=== PATIENT | male | born 1960 | race Caucasian/White ===

== ENCOUNTER 2017-11-23 00:05 | Emergency (ER) | payer BC ==
[2017-11-23 00:18] VITALS: TEMP 98.4
[2017-11-23 00:49] LABS: Amphetamine Screen,Urine Not Detected (NotDetected); Barbiturate Screen,Urine Not Detected (NotDetected); Benzodiazepines Screen,Urine Not Detected (NotDetected); Cocaine Screen,Urine Not Detected (NotDetected); Methadone Screen, Urine Not Detected (NotDetected); Opiate Screen,Urine Not Detected (NotDetected); Oxycodone Screen, Urine Not Detected (NotDetected); Phencyclidine Screen,Urine Not Detected (NotDetected); Tricyclic Antidepressant,Urine Not Detected (NotDetected); Urn Cannabinoid Scrn Not Detected (NotDetected)
--- NOTE | 2017-11-23 01:06 | ED ---
Psych HPI - General Chief Complaint: Psychiatric Symptoms Stated Complaint: mental health Time Seen by Provider: 11/23/17 00:23 Source: patient Mode of arrival: ambulatory - History of Present Illness Initial Comments: 26 years old gentleman now was petitioned by his son and they believe he is delusional and is paranoid police brought him in and initially he was not very cooperative with the police but in ER he is very cooperative is pleasant he is answering questions. He believes the government is out there are controlling things least see the [place] with the family where they went in a quite a bit of detail about the patient's delusions and paranoia. He believes that [phone] [id number] were made by the [employer] as well as Her GET food from the [employer] to the popliteal light and no medical complaints at all - Related Data Home Medications Medication Instructions Recorded Confirmed No Known Home Medications [No 11/23/17 11/23/17 Known Home Medications] Allergies Allergy/AdvReac Type Severity Reaction Status Date / Time Penicillins Allergy Unknown Verified 11/23/17 00:18 Childhood Review of Systems ROS Statement: Those systems with pertinent positive or pertinent negative responses have been documented in the HPI. ROS Other: All systems not noted in ROS Statement are negative. Past Medical History Past Medical History: No Reported History History of Any Multi-Drug Resistant Organisms: None Reported Past Surgical History: No Surgical Hx Reported Past Psychological History: No Psychological Hx Reported Smoking Status: Current every day smoker Past Alcohol Use History: Occasional Past Drug Use History: None Reported General Exam - General Exam Comments Initial Comments: General: The patient is awake and alert, in no distress, and does not appear acutely ill. Skin: Skin is warm and dry and no rashes or lesions are noted. Eye: Pupils are equal, round and reactive to light, extra-ocular movements are intact; there is normal conjunctiva bilaterally. Ears, nose, mouth and throat: There are moist mucous membranes and no oral lesions. Neck: The neck is supple, there is no tenderness or JVD. Cardiovascular: There is a regular rate and rhythm. No murmur, rub or gallop is appreciated. Respiratory: To auscultation bilateral, no wheezing no rhonchi no distress respiratory self noticed Gastrointestinal: Soft, non-distended, non-tender abdomen without masses or organomegaly noted. There is no rebound or guarding present. Bowel sounds are unremarkable. Back: There is no tenderness to palpation in the midline. There is no obvious deformity. Musculoskeletal: Normal ROM, no tenderness, There is no pedal edema. There is no calf tenderness or swelling. No cords were appreciated. Neurological: CN II-XII intact, Cranial nerves III through XII are intact. There are no obvious motor or sensory deficits. Coordination appears grossly intact. Speech is normal. Psychiatric: Cooperative, appropriate mood & affect, based on the information the petition he definitely has a dilution as well as paranoia, denies any suicidal or homicidal ideation Limitations: no limitations Course Vital Signs 11/23/17 00:12 Temperature 98.4 F Pulse Rate 118 H Respiratory 20 Rate Blood Pressure 159/113 O2 Sat by Pulse 97 Oximetry We have consulted EPS to evaluate him and hopefully will be admitted for further evaluation and management Medical Decision Making - Lab Data Lab Results 11/23/17 Range/Units 00:23 Urine Opiates Screen Not Detected (NotDetected) Ur Oxycodone Screen Not Detected (NotDetected) Urine Methadone Screen Not Detected (NotDetected) Ur Propoxyphene Screen Not Detected (NotDetected) Ur Barbiturates Screen Not Detected (NotDetected) U Tricyclic Antidepress Not Detected (NotDetected) Ur Phencyclidine Scrn Not Detected (NotDetected) Ur Amphetamines Screen Not Detected (NotDetected) U Methamphetamines Scrn Not Detected (NotDetected) U Benzodiazepines Scrn Not Detected (NotDetected) Urine Cocaine Screen Not Detected (NotDetected) U Marijuana (THC) Screen Not Detected (NotDetected) Disposition Clinical Impression: Psychosis Disposition: ADMITTED IP TO THIS HOSP Condition: Good Referrals: None,Stated [Primary Care Provider] - 1-2 days
[2017-11-23] MEDS ORDERED: LORazepam 1 MG TAB PO STA (03:57)
[2017-11-23 05:08] LABS: Basophils % (A) 0 %; Eosinophils # (A) 0.1 k/uL (0-0.7); Eosinophils % (A) 1 %; HCT 45.1 % (39.0-53.0); HGB 16.1 gm/dL (13.0-17.5); Lymphocytes # (A) 1.8 k/uL (1.0-4.8); Lymphocytes % (A) 17 %; MCH 31.3 pg (25.0-35.0); MCHC 35.6 g/dL (31.0-37.0); Mean Platelet Volume 6.4; Monocytes # (A) 0.7 k/uL (0-1.0); Monocytes % (A) 7 %; Neutrophils # (A) 7.6 k/uL (1.3-7.7); Neutrophils % (A) 75 %; Platelet Count 229 k/uL (150-450); RBC 5.12 m/uL (4.30-5.90); RDW 12.6 % (11.5-15.5); WBC 10.2 k/uL (3.8-10.6)
[2017-11-23 05:16] LABS: Appearance,Urine Clear (Clear); Bilirubin,Urine Negative (Negative); Blood,Urine Negative (Negative); Color,Urine Yellow; Glucose,Urine (UA) Negative (Negative); Hyaline Casts,Urine 171 /lpf (0-2); Ketones,Urine 2+ (Negative); Leukocyte Esterase,Urine Negative (Negative); Mucus,Urine Occasional /hpf; Nitrite,Urine Negative (Negative); PH, Urine 5.5 (5.0-8.0); Protein,Urine 1+ (Negative); RBC,Urine <1 /hpf (0-5); Specific Gravity,Urine 1.013 (1.001-1.035); Squamous Epithelial Cell,Urine <1 /hpf (0-4); Urobilinogen,Urine <2.0 mg/dL (<2.0); WBC,Urine 2 /hpf (0-5)
[2017-11-23 05:17] LABS: ALT 44 U/L (21-72); AST 34 U/L (17-59); Albumin 4.3 g/dL (3.5-5.0); Alkaline Phosphatase 43 U/L (38-126); Anion Gap 15 mmol/L; Blood Urea Nitrogen 18 mg/dL (9-20); Calcium 9.3 mg/dL (8.4-10.2); Carbon Dioxide 23 mmol/L (22-30); Chloride 105 mmol/L (98-107); Glucose 102 mg/dL (74-99); Potassium 3.4 mmol/L (3.5-5.1); Sodium 143 mmol/L (137-145); Total Bilirubin 0.6 mg/dL (0.2-1.3); Total Protein 6.5 g/dL (6.3-8.2)
--- NOTE | 2017-11-23 05:48 | CT ---
EXAM: CT Head Without Intravenous Contrast CLINICAL HISTORY: ITS.REASON CT Reason: Pain TECHNIQUE: Axial computed tomography images of the head/brain without intravenous contrast. CTDI is 15.98 mGy and DLP is 1126.5 mGy-cm. This CT exam was performed using one or more of the following dose reduction techniques: automated exposure control, adjustment of the mA and/or kV according to patient size, and/or use of iterative reconstruction technique. COMPARISON: None. FINDINGS: Brain: Unremarkable. No acute intracranial hemorrhage. No midline shift or herniation. Ventricles: Unremarkable. No ventriculomegaly. Bones/joints: No acute fracture. Soft tissues: Unremarkable. Sinuses: Unremarkable as visualized. Mastoid air cells: Unremarkable as visualized. IMPRESSION: No acute intracranial findings by noncontrast CT head.
[2017-11-23 06:28] VITALS: BP 134/72; PULSE 97; RESP 16
== END 2017-11-23 16:15 | disposition other institution (70) ==
LOC: EC 00:05
DX: F29 Unspecified psychosis not due to a substance or known physiological condition (principal); F17.200 Nicotine dependence, unspecified, uncomplicated; Z88.0 Allergy status to penicillin
CPT/HCPCS: 36415; 70450; 80053; 80306; 81001; 82075; 85025; 99285

== ENCOUNTER 2017-12-08 16:05 | Emergency (ER) | payer BC ==
[2017-12-08 16:09] VITALS: TEMP 97.8
[2017-12-08] MEDS ORDERED: DIPH,PERTUS(ACELL)TETVAC-LF 0.5 ML VIAL IM ONE (17:19)
--- NOTE | 2017-12-08 17:43 | ED ---
Wound/Laceration HPI - General Chief Complaint: Wound/Laceration Stated Complaint: lac left index Time Seen by Provider: 12/08/17 17:07 Source: patient, RN notes reviewed, old records reviewed Mode of arrival: ambulatory Limitations: no limitations - History of Present Illness Initial Comments: 56-year-old male with CC of left index finger tip laceration while working with a saw. Patient reports that he cut the tip of the fingertip, no nailbed involvement. Patient reports that he avulsed the skin. Patient denies peripheral paresthesias. He does not know if his TDAP is up to date. Denies pain with ROM of the finger. Aleksandern is right handed. - Related Data Previous Rx's Medication Instructions Recorded Sulfamethox-Tmp 800-160Mg [Bactrim 1 tab PO BID #14 tab 12/08/17 DS 800-160 mg] Allergies Allergy/AdvReac Type Severity Reaction Status Date / Time Penicillins Allergy Itching Verified 12/08/17 17:34 Review of Systems ROS Statement: Those systems with pertinent positive or pertinent negative responses have been documented in the HPI. ROS Other: All systems not noted in ROS Statement are negative. Past Medical History Past Medical History: No Reported History History of Any Multi-Drug Resistant Organisms: None Reported Past Surgical History: Tonsillectomy Past Psychological History: No Psychological Hx Reported Smoking Status: Former smoker Past Alcohol Use History: Daily Past Drug Use History: None Reported General Exam - General Exam Comments Initial Comments: Well appearing alert and oriented 56 year old male, no acute distress. Limitations: no limitations General appearance: alert, in no apparent distress Head exam: Present: atraumatic, normocephalic, normal inspection Eye exam: Present: normal appearance, PERRL, EOMI. Absent: scleral icterus, conjunctival injection, periorbital swelling ENT exam: Present: normal exam, mucous membranes moist Neck exam: Present: normal inspection. Absent: tenderness, meningismus, lymphadenopathy Respiratory exam: Present: normal lung sounds bilaterally. Absent: respiratory distress, wheezes, rales, rhonchi, stridor Cardiovascular Exam: Present: regular rate, normal rhythm, normal heart sounds. Absent: systolic murmur, diastolic murmur, rubs, gallop, clicks GI/Abdominal exam: Present: soft, normal bowel sounds. Absent: distended, tenderness, guarding, rebound, rigid Extremities exam: Present: normal inspection, full ROM, normal capillary refill , other (2 cm laceration over distal left fourth digit. Skin is avulsed. Full ROM and patient is NV intact. ). Absent: tenderness, pedal edema, joint swelling, calf tenderness Psychiatric exam: Present: normal affect, normal mood Skin exam: Present: warm, dry, intact, normal color. Absent: rash Course Vital Signs 12/08/17 12/08/17 16:07 18:32 Temperature 97.8 F Pulse Rate 104 H 90 Respiratory 20 16 Rate Blood Pressure 124/79 121/80 O2 Sat by Pulse 98 97 Oximetry Procedures - Laceration Laceration #1 Site: hand (left distal index finger. ) Size (cm): 2 Description: linear Depth: simple, single layer Pre-repair: wound explored, irrigated extensively Type of Sutures: other (gelfoam) Patient Tolerated Procedure: well, no complications Medical Decision Making - Medical Decision Making Patient is a 56 year old male with left index finger laceration. Skin is avulsed , and cannto be sutured with well approximation. Patient wound was cleaned, and gelfoam and tube gauze placed over area. Xray shows no foreign body or dislocation. Patient given updated Keflex. Referral to hand specialist. All questiona nswered and return parameters discussed. - Radiology Data Radiology results: report reviewed Soft tissue deformity at anterior aspect of left index finger, No fracture or foreign body. Mild spurring at DIP joint. Disposition Clinical Impression: Finger laceration Disposition: HOME SELF-CARE Condition: Good Instructions: Finger Laceration (ED) Additional Instructions: Patient is advised to keep the wound covered for the next 2 days. Afterwards he can remove the gauze dressing and use water to slowly remove the Gelfoam. Afterwards extremely keeping the wound covered. Take the antibiotics to ensure no infection. Return to the emergency department if any alarming signs or symptoms occur. Prescriptions: Sulfamethox-Tmp 800-160Mg [Bactrim DS 800-160 mg] 1 tab PO BID #14 tab Is patient prescribed a controlled substance at d/c from ED?: No When asked, does pt state using other controlled substances?: No If prescribed controlled substance>3 days was MAPS reviewed?: No If opioid is for acute pain is fill amount 7 days or less?: No If Rx opioid, was Start Talking consent form obtained?: No Referrals: Val Hester DO [Primary Care Provider] - 1-2 days Time of Disposition: 18:16
--- NOTE | 2017-12-08 18:02 | XR ---
EXAMINATION TYPE: XR finger LT DATE OF EXAM: 12/08/2017 COMPARISON: NONE HISTORY: Laceration injury TECHNIQUE: 3 views FINDINGS: There is soft tissue deformity at the anterior aspect of the left index finger. I see no fr acture nor dislocation. There is no sign of a foreign body. IMPRESSION: Laceration deformity. No fracture seen. Mild spurring at the DIP joint.
[2017-12-08] MEDS ORDERED: GELATIN SPONGE,ABSORB (SMALL) 1 EACH SPONGE TOPICAL STA (18:06)
[2017-12-08 18:33] VITALS: BP 121/80; PULSE 90; RESP 16
== END 2017-12-08 18:32 | disposition home or self-care (01) ==
LOC: EC 16:05
DX: S61.211A Laceration without foreign body of left index finger without damage to nail, initial encounter (principal); Z87.891 Personal history of nicotine dependence; Z88.0 Allergy status to penicillin; Z23 Encounter for immunization; W27.0XXA Contact with workbench tool, initial encounter; Y92.009 Unspecified place in unspecified non-institutional (private) residence as the place of occurrence of the external cause; Y93.89 Activity, other specified
CPT/HCPCS: 90471; 90715; 99283

== ENCOUNTER 2021-03-15 13:21 | Emergency (ER) | payer BC ==
[2021-03-15] MEDS ORDERED: IBUPROFEN 600 MG TAB PO STA (14:02)
--- NOTE | 2021-03-15 14:08 | ED ---
SOB HPI - General Source: patient, RN notes reviewed Mode of arrival: ambulatory Limitations: no limitations - History of Present Illness MD Complaint: shortness of breath, cough Known History Of: diabetes Associated Symptoms: fever, cough Treatments Prior to Arrival: none <Juan Diego Donaldson - Last Filed: 03/15/21 14:08> <Adan Tang - Last Filed: 03/15/21 15:24> - General Chief Complaint: Shortness of Breath Stated Complaint: Covid+,RORO Time Seen by Provider: 03/15/21 13:51 - History of Present Illness Initial Comments: 60-year-old male presenting to the ER for chief complaint of shortness of breath congestion cough for one week, patient also is complaining of possible taste and general weakness. Patient reports getting COVID tested one week ago and has not got results back yet. Patient's past medical history is positive for diabetes. Patient is ill-appearing but in pleasant mood at this time. (Juan Diego Donaldson) - Related Data Home Medications Medication Instructions Recorded Confirmed metFORMIN HCL ER [Glucophage XR] 750 mg PO DAILY 01/16/19 01/16/19 Allergies Allergy/AdvReac Type Severity Reaction Status Date / Time Penicillins Allergy Itching Verified 03/15/21 13:46 Review of Systems ROS Other: All systems not noted in ROS Statement are negative. <Juan Diego Donaldson - Last Filed: 03/15/21 14:08> ROS Other: All systems not noted in ROS Statement are negative. <Adan Tang - Last Filed: 03/15/21 15:24> ROS Statement: Those systems with pertinent positive or pertinent negative responses have been documented in the HPI. Past Medical History Past Medical History: Diabetes Mellitus History of Any Multi-Drug Resistant Organisms: None Reported Past Surgical History: Tonsillectomy Past Anesthesia/Blood Transfusion Reactions: No Reported Reaction Past Psychological History: No Psychological Hx Reported Smoking Status: Former smoker Past Alcohol Use History: Daily Past Drug Use History: None Reported <Juan Diego Donaldson - Last Filed: 03/15/21 14:08> General Exam Limitations: no limitations General appearance: alert, in no apparent distress Head exam: Present: atraumatic, normocephalic, normal inspection Eye exam: Present: normal appearance, PERRL, EOMI. Absent: scleral icterus, conjunctival injection, periorbital swelling ENT exam: Present: normal exam, mucous membranes moist Neck exam: Present: normal inspection. Absent: tenderness, meningismus, ly mphadenopathy Respiratory exam: Present: wheezes (mild) Cardiovascular Exam: Present: regular rate, normal rhythm, normal heart sounds. Absent: systolic murmur, diastolic murmur, rubs, gallop, clicks GI/Abdominal exam: Present: soft, normal bowel sounds. Absent: distended, tenderness, guarding, rebound, rigid Extremities exam: Present: normal inspection, full ROM, normal capillary refill. Absent: tenderness, pedal edema, joint swelling, calf tenderness Back exam: Present: normal inspection Neurological exam: Present: alert, oriented X3, CN II-XII intact Psychiatric exam: Present: normal affect, normal mood Skin exam: Present: warm, dry, intact, normal color. Absent: rash <Juan Diego Donaldson - Last Filed: 03/15/21 14:08> Course Vital Signs 03/15/21 03/15/21 03/15/21 13:43 14:45 14:47 Temperature 100.1 F H Pulse Rate 98 Respiratory 22 18 18 Rate Blood Pressure 154/91 O2 Sat by Pulse 94 L Oximetry Medical Decision Making <Adan Tang - Last Filed: 03/15/21 15:24> - Medical Decision Making Marquez is a 60-year-old male that presents emergency department complaining of Covid type symptoms. Case taken from Juan Diego Donaldson. Covid test positive. Patient wishes to undergo monoclonal antibody infusion. Patient agrees with plan and agrees to discharge home after infusion. Case discussed with Dr. Crabtree, patient discharge home after. (Adan Tang) - Lab Data Lab Results 03/15/21 Range/Units 14:45 Coronavirus (PCR) Detected A (Not Detectd) Disposition <Juan Diego Donaldson - Last Filed: 03/15/21 14:08> Is patient prescribed a controlled substance at d/c from ED?: No Time of Disposition: 15:24 <Adan Tang - Last Filed: 03/15/21 15:24> Clinical Impression: COVID Disposition: HOME SELF-CARE Condition: Stable Instructions (If sedation given, give patient instructions): Coronavirus Disease 2019 (COVID-19) Additional Instructions: Please return to the Emergency Department if symptoms worsen or any other concerns. Quarantine per CDC guidelines. Follow-up primary care as needed. Take Tylenol Motrin as day for fevers. Referrals: None,Stated [REFERRING] - 1-2 days
--- NOTE | 2021-03-15 14:33 | XR ---
EXAMINATION TYPE: XR chest 2V DATE OF EXAM: 03/15/2021 COMPARISON: NONE HISTORY: RORO, COVID positive. TECHNIQUE: Frontal and lateral views of the chest are obtained. FINDINGS: There are bilateral multifocal opacities greatest in the lower lungs and right midlung per iphery. No pleural effusion or pneumothorax seen bilaterally. The cardiac silhouette size is within normal limits. The osseous structures are intact. IMPRESSION: Bilateral multifocal opacities consistent with known covid-19 infection.
[2021-03-15 14:47] VITALS: RESP 18
[2021-03-15] MEDS ORDERED: SODIUM CHLORIDE 0.9% 50 ML IVPB ONE (15:45)
[2021-03-15] MEDS ORDERED: CASIRIVIMAB/IMDEVIMAB (EUA) 1,200 MG in SODIUM CHLORIDE 0.9% 100 ML IVPB ONE (16:00)
[2021-03-15 16:14] VITALS: TEMP 99.6
[2021-03-15 16:17] VITALS: BP 128/70
[2021-03-15 17:39] VITALS: PULSE 77
== END 2021-03-15 17:38 | disposition home or self-care (01) ==
LOC: EC 13:21
DX: U07.1 COVID-19 (principal); E11.9 Type 2 diabetes mellitus without complications; Z79.84 Long term (current) use of oral hypoglycemic drugs; Z88.0 Allergy status to penicillin; Z90.89 Acquired absence of other organs; Z87.891 Personal history of nicotine dependence
CPT/HCPCS: 99285; 96365; 87635; 71046; Q0243

== ENCOUNTER 2021-03-18 10:12 | Emergency (ER) | payer BC ==
[2021-03-18 10:28] VITALS: TEMP 98.2
[2021-03-18] MEDS ORDERED: DEXAMETHASONE SOD PHOSPHATE 10 MG/ML 1 ML VIAL IV STA (11:09)
[2021-03-18] MEDS ORDERED: SODIUM CHLORIDE 0.9% 1,000 ML IV STA (11:10)
--- NOTE | 2021-03-18 11:43 | XR ---
EXAMINATION TYPE: XR chest 2V DATE OF EXAM: 03/18/2021 COMPARISON: 03/15/2021 HISTORY: 60-year-old male COVID, cough, congestion, fever TECHNIQUE: PA and lateral views FINDINGS: The cardiomediastinal silhouette, aorta, and pulmonary vasculature are within normal limits. There is patchy bilateral peripheral opacities that have increased significantly from prior exam. IMPRESSION: Worsening bilateral peripheral COVID pneumonia.
[2021-03-18 11:55] LABS: Basophils % (A) 1 %; Eosinophils % (A) 0 %; HCT 43.6 % (39.0-53.0); HGB 15.3 gm/dL (13.0-17.5); Lymphocytes # (A) 0.6 k/uL (1.0-4.8); Lymphocytes % (A) 9 %; MCH 31.1 pg (25.0-35.0); MCHC 35.1 g/dL (31.0-37.0); MCV 88.7 fL (80.0-100.0); Mean Platelet Volume 7.6; Monocytes # (A) 0.4 k/uL (0-1.0); Monocytes % (A) 5 %; Neutrophils % (A) 84 %; Platelet Count 281 k/uL (150-450); RBC 4.92 m/uL (4.30-5.90); RDW 12.5 % (11.5-15.5); WBC 7.2 k/uL (3.8-10.6)
[2021-03-18 12:27] LABS: Appearance,Urine Clear (Clear); Bilirubin,Urine Negative (Negative); Blood,Urine Negative (Negative); Color,Urine Yellow; Glucose,Urine (UA) Trace (Negative); Ketones,Urine 1+ (Negative); Leukocyte Esterase,Urine Negative (Negative); Mucus,Urine Occasional /hpf; Nitrite,Urine Negative (Negative); Protein,Urine 1+ (Negative); RBC,Urine <1 /hpf (0-5); Specific Gravity,Urine 1.024 (1.001-1.035); Urobilinogen,Urine <2.0 mg/dL (<2.0); WBC,Urine 2 /hpf (0-5)
[2021-03-18 12:48] VITALS: BP 150/78; PULSE 72; RESP 20
[2021-03-18 13:40] LABS: ALT 56 U/L (4-49); AST 52 U/L (17-59); African American GFR (CKD) >90 (>60 ml/min/1.73 sqM); Albumin 3.1 g/dL (3.5-5.0); Alkaline Phosphatase 47 U/L (38-126); Anion Gap 7 mmol/L; Blood Urea Nitrogen 21 mg/dL (9-20); Carbon Dioxide 28 mmol/L (22-30); Chloride 103 mmol/L (98-107); Glucose 190 mg/dL (74-99); Non-African American GFR(CKD) >90 (>60 ml/min/1.73 sqM); Potassium 3.4 mmol/L (3.5-5.1); Sodium 138 mmol/L (137-145); Total Bilirubin 0.7 mg/dL (0.2-1.3); Total Protein 5.7 g/dL (6.3-8.2)
[2021-03-18] MEDS ORDERED: ALBUTEROL HFA INHALER INHALATION STA (13:45)
--- NOTE | 2021-03-18 13:47 | ED ---
URI HPI - General Chief Complaint: Upper Respiratory Infection Stated Complaint: Covid, SOB, weakness Time Seen by Provider: 03/18/21 10:49 Source: patient, RN notes reviewed Mode of arrival: ambulatory Limitations: no limitations - History of Present Illness Initial Comments: Patient is a 60-year-old male that presents to emergency department complaining of increased shortness of breath on exertion. He was seen several days ago and got monoclonal antibody infusion for Covid positive result. He notes that he is still feeling under the weather. He denied any other symptoms. He notes that most shortness of breath on exertion. He was otherwise a well-appearing 60-year-old male in no apparent distress or pain. He denied any chest pain headache nausea vomiting diarrhea constipation fever fatigue chills. - Related Data Home Medications Medication Instructions Recorded Confirmed metFORMIN HCL ER [Glucophage XR] 750 mg PO DAILY 01/16/19 01/16/19 Previous Rx's Medication Instructions Recorded Albuterol Sulfate [Albuterol 2 puff PO Q6H #8.5 gm 03/18/21 Sulfate Hfa] Allergies Allergy/AdvReac Type Severity Reaction Status Date / Time Penicillins Allergy Itching Verified 03/18/21 10:26 Review of Systems ROS Statement: Those systems with pertinent positive or pertinent negative responses have been documented in the HPI. ROS Other: All systems not noted in ROS Statement are negative. Past Medical History Past Medical History: Diabetes Mellitus History of Any Multi-Drug Resistant Organisms: None Reported Past Surgical History: Tonsillectomy Past Anesthesia/Blood Transfusion Reactions: No Reported Reaction Past Psychological History: No Psychological Hx Reported Smoking Status: Former smoker Past Alcohol Use History: Daily, Occasional Past Drug Use History: None Reported General Exam Limitations: no limitations General appearance: alert, in no apparent distress Head exam: Present: atraumatic, normocephalic, normal inspection Eye exam: Present: normal appearance, PERRL, EOMI. Absent: scleral icterus, conjunctival injection, periorbital swelling ENT exam: Present: normal exam, mucous membranes moist Neck exam: Present: normal inspection Respiratory exam: Present: normal lung sounds bilaterally. Absent: respiratory distress, wheezes, rales, rhonchi, stridor Cardiovascular Exam: Present: regular rate, normal rhythm, normal heart sounds. Absent: systolic murmur, diastolic murmur, rubs, gallop, clicks Extremities exam: Present: normal inspection, full ROM, normal capillary refill. Absent: tenderness, pedal edema, joint swelling, calf tenderness Neurological exam: Present: alert, oriented X3 Psychiatric exam: Present: normal affect, normal mood Skin exam: Present: warm, dry, intact, normal color. Absent: rash Course Vital Signs 03/18/21 03/18/21 10:26 12:46 Temperature 98.2 F Pulse Rate 83 72 Respiratory 18 20 Rate Blood Pressure 145/83 150/78 O2 Sat by Pulse 93 L 93 L Oximetry Medical Decision Making - Medical Decision Making 60-year-old male complaining of increased dyspnea several days post monoclonal antibody. Basic labs, 1 L normal saline, repeat chest x-ray ordered. Labs unremarkable. Chest x-ray shows worsening bilateral patchy infiltrates. Albuterol inhaler ordered for patient. Patient is we will discharge home with outpatient inhaler. Case discussed with Dr. Sanchez, patient discharge home. - Lab Data Result diagrams: 03/18/21 11:28 03/18/21 11:28 Lab Results 03/18/21 03/18/21 03/18/21 Range/Units 11:28 11:28 11:28 WBC 7.2 (3.8-10.6) k/uL RBC 4.92 (4.30-5.90) m/uL Hgb 15.3 (13.0-17.5) gm/dL Hct 43.6 (39.0-53.0) % MCV 88.7 (80.0-100.0) fL MCH 31.1 (25.0-35.0) pg MCHC 35.1 (31.0-37.0) g/dL RDW 12.5 (11.5-15.5) % Plt Count 281 (150-450) k/uL MPV 7.6 Neutrophils % 84 % Lymphocytes % 9 % Monocytes % 5 % Eosinophils % 0 % Basophils % 1 % Neutrophils # 6.0 (1.3-7.7) k/uL Lymphocytes # 0.6 L (1.0-4.8) k/uL Monocytes # 0.4 (0-1.0) k/uL Eosinophils # 0.0 (0-0.7) k/uL Basophils # 0.0 (0-0.2) k/uL Sodium 138 (137-145) mmol/L Potassium 3.4 L (3.5-5.1) mmol/L Chloride 103 (98-107) mmol/L Carbon Dioxide 28 (22-30) mmol/L Anion Gap 7 mmol/L BUN 21 H (9-20) mg/dL Creatinine 0.67 (0.66-1.25) mg/dL Est GFR (CKD-EPI)AfAm >90 (>60 ml/min/1.73 sqM) Est GFR (CKD-EPI)NonAf >90 (>60 ml/min/1.73 sqM) Glucose 190 H (74-99) mg/dL Calcium 8.0 L (8.4-10.2) mg/dL Total Bilirubin 0.7 (0.2-1.3) mg/dL AST 52 (17-59) U/L ALT 56 H (4-49) U/L Alkaline Phosphatase 47 (38-126) U/L Total Protein 5.7 L (6.3-8.2) g/dL Albumin 3.1 L (3.5-5.0) g/dL Urine Color Yellow Urine Appearance Clear (Clear) Urine pH 6.0 (5.0-8.0) Ur Specific [place] 1.024 (1.001-1.035) Urine Protein 1+ H (Negative) Urine Glucose (UA) Trace H (Negative) Urine Ketones 1+ H (Negative) Urine Blood Negative (Negative) Urine Nitrite Negative (Negative) Urine Bilirubin Negative (Negative) Urine Urobilinogen <2.0 (<2.0) mg/dL Ur Leukocyte Esterase Negative (Negative) Urine RBC <1 (0-5) /hpf Urine WBC 2 (0-5) /hpf Urine Mucus Occasional H (None) /hpf - Radiology Data Radiology results: report reviewed, image reviewed Chest x-ray: Worsening bilateral peripheral Covid pneumonia. Disposition Clinical Impression: Pneumonia due to COVID-19 virus Disposition: HOME SELF-CARE Condition: Stable Instructions (If sedation given, give patient instructions): Coronavirus Disease 2019 (COVID-19) Additional Instructions: Please return to the Emergency Department if symptoms worsen or any other concerns. Follow-up with primary care 1-2 days line take inhaler as prescribed. Avoid any shortness activity or exercise. Is patient prescribed a controlled substance at d/c from ED?: No Referrals: Ajith Hester MD [Primary Care Provider] - 1-2 days Time of Disposition: 13:47
== END 2021-03-18 14:26 | disposition home or self-care (01) ==
LOC: EC 10:12
DX: U07.1 COVID-19 (principal); J12.82 Pneumonia due to coronavirus disease 2019; E11.9 Type 2 diabetes mellitus without complications; Z87.891 Personal history of nicotine dependence; Z79.84 Long term (current) use of oral hypoglycemic drugs; Z79.899 Other long term (current) drug therapy; Z88.0 Allergy status to penicillin
CPT/HCPCS: 36415; 71046; 80053; 81001; 85025; 94640; 96361; 96374; 99285